=== PATIENT | male | born 1980 | race Hispanic/Latino ===

== ENCOUNTER 2022-02-07 15:52 | Emergency (ER) | payer SELFPAY ==
[2022-02-07] MEDS ORDERED: Adenocard IV 6 MG/2 ML IV ONE ×4 (16:49→17:17)
[2022-02-07] MEDS ORDERED: Sodium Chloride 0.9% 1000 ML 1,000 ML ONE ×2 (16:49→18:51)
--- NOTE | 2022-02-07 16:55 | ERPHSYRPT ---
- History of Present Illness Time Seen by Provider: 02/07/22 16:39 Source: patient, family Exam Limitations: language barrier Physician History: 41-year-old Bahamian-speaking male with questionable history of atrial fibrillation/flutter almost 17 years ago with some work-up done at [facility] was feeling fine until recently started to have again having palpitations with gen eralized weakness fatigue and tiredness, last for few hours today then improved but for the last couple of days he is having constant palpitations feeling fatigued tired. Gets worse with activity and mild improvement with resting. Dull aching discomfort in the chest with mild difficulty breathing on ambulation as well. No fever or chills reported. Does not use any drugs. Drink 2-3 times a week regularly. According to brother he is taking some medication but do not know the name. Timing/Duration: day(s) (2), constant, gradual onset, worse Severity: moderate Modifying Factors: Worsens With: movement Associated Symptoms: weakness Allergies/Adverse Reactions: No Known Drug Allergies Allergy (Verified 02/07/22 16:35) Home Medications: Unobtainable 02/07/22 [History] - Review of Systems Constitutional: Fatigue, Weakness Eyes: No Symptoms Ears, Nose, & Throat: No Symptoms Respiratory: Dyspnea, Dyspnea on Exertion (MORFIN) Cardiac: Palpitations Abdominal/Gastrointestinal: No Symptoms Genitourinary Symptoms: No Symptoms Musculoskeletal: No Symptoms Skin: No Symptoms Psychological: No Symptoms Endocrine: No Symptoms Hematologic/Lymphatic: No Symptoms Immunological/Allergic: No Symptoms - Nursing Vital Signs Nursing Vital Signs: Initial Vital Signs Temperature 98.1 F 02/07/22 16:39 Pulse Rate 121 H 02/07/22 16:39 Respiratory Rate 20 02/07/22 16:39 Blood Pressure 110/88 02/07/22 16:39 O2 Sat by Pulse Oximetry 98 02/07/22 16:39 Pain Scale Pain Intensity 0 - Physical Exam General Appearance: no apparent distress, alert Eye Exam: PERRL/EOMI Ears, Nose, Throat Exam: normal ENT inspection, pharynx normal Neck Exam: normal inspection, non-tender, supple, full range of motion Respiratory Exam: normal breath sounds, lungs clear Cardiovascular Exam: normal heart sounds, tachycardia Gastrointestinal/Abdomen Exam: soft, normal bowel sounds, No tenderness Back Exam: normal inspection, normal range of motion Extremity Exam: normal inspection, normal range of motion Neurologic Exam: alert, oriented x 3, cooperative Skin Exam: normal color SpO2 Interpretation: normal SpO2: 96 O2 Delivery: Room Air - Course Nursing assessment & vital signs reviewed: Yes EKG Interpreted by Me: RATE (159, atrial flutter), NORMAL AXIS, prolonged QT interval (Second EKG. Time 1711. Rate 67. Rhythm atrial flutter. Occasional PVC. Right axis deviation. Nonspecific T wave changes.), Non-specific ST Changes, Other Ordered Tests: Active Orders 24 hr Category Date Time Status Plant Equipment Engineer STAT Care 02/07/22 17:16 Completed EKG-ER Only STAT Care 02/07/22 17:16 Completed IV Insertion STAT Care 02/07/22 17:16 Completed Oxygen-ED Only Nasal Cannula 2 lpm Care 02/07/22 17:16 Completed CHEST 1 VIEW (PORTABLE) Stat Exams 02/07/22 17:16 Completed CBC W DIFF Stat Lab 02/07/22 17:20 Completed CMP Stat Lab 02/07/22 17:20 Completed MAG [MAGNESIUM] Stat Lab 02/07/22 17:34 Completed NT PRO BNP Stat Lab 02/07/22 17:20 Completed PROTIME WITH INR Stat Lab 02/07/22 17:31 Completed TROPONIN Q3H Lab 02/07/22 17:20 Completed TSH [TSH, 3RD Generation] Stat Lab 02/07/22 17:34 Completed Medication Summary Discontinued Medications Generic Name Dose Route Start Last Admin Trade Name Freq PRN Reason Stop Dose Admin Adenosine Confirm 02/07/22 16:49 Adenosine 6 Mg/2 Ml Vial Administered 02/07/22 16:50 Dose 6 mg IV .STK-MED ONE Adenosine Confirm 02/07/22 17:09 Adenosine 6 Mg/2 Ml Vial Administered 02/07/22 17:10 Dose 12 mg IV .STK-MED ONE Adenosine 6 mg 02/07/22 17:17 02/07/22 17:07 Adenosine 6 Mg/2 Ml Vial IV 02/07/22 17:18 6 mg STAT ONE Administration Adenosine 12 mg 02/07/22 17:17 02/07/22 17:11 Adenosine 6 Mg/2 Ml Vial IV 02/07/22 17:18 12 mg STAT ONE Administration Aspirin 324 mg 02/07/22 17:16 02/07/22 17:25 Aspirin 81 Mg Tab.Chew PO 02/07/22 17:17 324 mg STAT ONE Administration Aspirin Confirm 02/07/22 17:24 Aspirin 81 Mg Tab.Chew Administered 02/07/22 17:25 Dose 324 mg .ROUTE .STK-MED ONE Digoxin 0.5 mg 02/07/22 18:46 02/07/22 18:47 Digoxin 0.5 Mg/2 Ml Injection IV 02/07/22 18:47 0.5 mg STAT ONE Administration Digoxin Confirm 02/07/22 18:45 Digoxin 0.5 Mg/2 Ml Injection Administered 02/07/22 18:46 Dose 0.5 mg .ROUTE .STK-MED ONE Diltiazem HCl 10 mg 02/07/22 17:16 02/07/22 17:29 Diltiazem Hcl Iv 5 Mg/Ml Vial IV 02/07/22 17:17 10 mg STAT ONE Administration Diltiazem HCl Confirm 02/07/22 17:28 Diltiazem Hcl Iv 5 Mg/Ml Vial Administered 02/07/22 17:29 Dose 50 mg IV .STK-MED ONE Sodium Chloride Confirm 02/07/22 16:49 Sodium Chloride 0.9% 1000 Ml Administered 02/07/22 16:50 Dose 1,000 mls @ ud .ROUTE .STK-MED ONE Sodium Chloride 1,000 mls @ 999 mls/hr 02/07/22 17:16 02/07/22 18:36 Sodium Chloride 0.9% 1000 Ml IV 02/07/22 18:16 Infused .Q1H1M STA Infusion Diltiazem HCl 100 mls @ 5 mls/hr 02/07/22 17:16 02/07/22 18:28 Cardizem Drip 100 Mg/100 Ml D5w IV 03/09/22 17:15 10 mg/hr .Q20H PRN 10 mls/hr HEART RATE/ A-FIB Titration Protocol 5 MG/HR Sodium Chloride Confirm 02/07/22 18:51 Sodium Chloride 0.9% 1000 Ml Administered 02/07/22 18:52 Dose 1,000 mls @ ud .ROUTE .STK-MED ONE Sodium Chloride 1,000 mls @ 100 mls/hr 02/07/22 19:00 02/07/22 18:55 Sodium Chloride 0.9% 1000 Ml IV 03/09/22 18:59 100 mls/hr .Q10H JORGE Administration Diltiazem HCl Confirm 02/07/22 17:18 Cardizem Drip 100 Mg/100 Ml D5w Administered 02/07/22 17:19 Dose 100 mls @ ud IV .STK-MED ONE Lab/Rad Data: Laboratory Result Diagrams 02/07/22 17:20 02/07/22 17:20 Laboratory Results 02/07/22 02/07/22 02/07/22 Range/Units 17:34 17:34 17:31 WBC (4.0-10.5) x10^3/uL RBC (4.1-5.6) x10^6/uL Hgb (12.5-18.0) g/dL Hct (42-50) % MCV (78-100) fL MCH (26-32) pg MCHC (32-36) g/dL RDW (11.5-14.0) % Plt Count (150-450) x10^3/uL MPV (7.5-11.0) fL Gran % (36.0-66.0) % Immature Gran % (Auto) (0.00-0.4) % Nucleat RBC Rel Count (0.00-0.1) % Eos # (Auto) (0-0.5) x10^3/uL Immature Gran # (Auto) (0.00-0.03) x10^3u/L Absolute Lymphs (auto) (1.0-4.6) x10^3/uL Absolute Monos (auto) (0.0-1.3) x10^3/uL Absolute Nucleated RBC (0.00-0.01) x10^3u/L Lymphocytes % (24.0-44.0) % Monocytes % (0.0-12.0) % Eosinophils % (0.00-5.0) % Basophils % (0.0-0.4) % Absolute Granulocytes (1.4-6.9) x10^3/uL Basophils # (0-0.4) x10^3/uL PT 11.2 (9.4-12.5) SECONDS INR 1.06 (0.8-3.0) Sodium (137-145) mmol/L Potassium (3.5-5.1) mmol/L Chloride (98-107) mmol/L Carbon Dioxide (22-30) mmol/L Anion Gap (5-15) MEQ/L BUN (9-20) mg/dL Creatinine (0.66-1.25) mg/dL Estimated GFR ML/MIN Glucose (74-106) mg/dL Calcium (8.4-10.2) mg/dL Magnesium 2.1 (1.6-2.3) mg/dL Total Bilirubin (0.2-1.3) mg/dL AST (17-59) U/L ALT (0-50) U/L Alkaline Phosphatase (38-126) U/L Troponin I (0.000-0.034) ng/mL NT-Pro-B Natriuret Pep (0-450) pg/mL Serum Total Protein (6.3-8.2) g/dL Albumin (3.5-5.0) g/dL TSH 3rd Generation 1.470 (0.47-4.68) mIU/L 02/07/22 02/07/22 02/07/22 Range/Units 17:20 17:20 17:20 WBC 6.1 (4.0-10.5) x10^3/uL RBC 4.19 (4.1-5.6) x10^6/uL Hgb 12.4 L (12.5-18.0) g/dL Hct 38.6 L (42-50) % MCV 92.1 (78-100) fL MCH 29.6 (26-32) pg MCHC 32.1 (32-36) g/dL RDW 12.8 (11.5-14.0) % Plt Count 184 (150-450) x10^3/uL MPV 12.2 H (7.5-11.0) fL Gran % 60.9 (36.0-66.0) % Immature Gran % (Auto) 0.3 (0.00-0.4) % Nucleat RBC Rel Count 0.0 (0.00-0.1) % Eos # (Auto) 0.06 (0-0.5) x10^3/uL Immature Gran # (Auto) 0.02 (0.00-0.03) x10^3u/L Absolute Lymphs (auto) 1.41 (1.0-4.6) x10^3/uL Absolute Monos (auto) 0.89 (0.0-1.3) x10^3/uL Absolute Nucleated RBC 0.00 (0.00-0.01) x10^3u/L Lymphocytes % 23.0 L (24.0-44.0) % Monocytes % 14.5 H (0.0-12.0) % Eosinophils % 1.0 (0.00-5.0) % Basophils % 0.3 (0.0-0.4) % Absolute Granulocytes 3.74 (1.4-6.9) x10^3/uL Basophils # 0.02 (0-0.4) x10^3/uL PT (9.4-12.5) SECONDS INR (0.8-3.0) Sodium 138 (137-145) mmol/L Potassium 4.1 (3.5-5.1) mmol/L Chloride 104 (98-107) mmol/L Carbon Dioxide 25 (22-30) mmol/L Anion Gap 13.2 (5-15) MEQ/L BUN 11 (9-20) mg/dL Creatinine 0.83 (0.66-1.25) mg/dL Estimated GFR > 60.0 ML/MIN Glucose 102 (74-106) mg/dL Calcium 8.8 (8.4-10.2) mg/dL Magnesium (1.6-2.3) mg/dL Total Bilirubin 1.40 H (0.2-1.3) mg/dL AST 43 (17-59) U/L ALT 38 (0-50) U/L Alkaline Phosphatase 68 (38-126) U/L Troponin I 0.013 (0.000-0.034) ng/mL NT-Pro-B Natriuret Pep 2330 H (0-450) pg/mL Serum Total Protein 7.0 (6.3-8.2) g/dL Albumin 4.1 (3.5-5.0) g/dL TSH 3rd Generation (0.47-4.68) mIU/L - Progress Progress: unchanged Progress Note: 02/07/22 17:19 41-year-old is evaluated for palpitations. Patient seems to be in atrial flutter and given adenosine 6 which did not make any change in the heart rate followed by adenosine 12 with an underlying rhythm was atrial flutter for few seconds and went back into atrial flutter with RVR. Started on Cardizem and will get baseline work-up done and patient probably needs to be transferred facility with cardiology service. 02/07/22 18:51 Patient has negative initial troponin. BNP 2300s with right-sided congestion on chest x-ray without any infiltrative process. Discussed with Dr. Nelson, reviewed history, work-up. Patient heart rate is still in 150s despite being on Cardizem 10. Recommended push dose of dig 500 mcg which is given. Patient is excepted for transfer. Plan discussed with patient and family who understand and agree with it. 02/07/22 18:[address] Other (Dr. Nelson [facility]) Counseled pt/family regarding: lab results, diagnosis, need for follow-up, rad results - Departure Departure Disposition: Transfer Clinical Impression: Atrial flutter with rapid ventricular response Condition: Stable Critical Care Time: Yes Critical Care Time(excluding separately billable procedures): Critical 30-74 mins Referrals: Provider,Unknown [NON-STAFF PHY W/O PRIVILEGES] - Follow up/PCP as directed
[2022-02-07] MEDS ORDERED: Cardizem IV 50 MG/10 ML IV ONE ×2 (17:16→17:28)
[2022-02-07] MEDS ORDERED: BABY ASPIRIN 81 MG CHEW PO ONE (17:16)
[2022-02-07] MEDS ORDERED: CARDIZEM DRIP 100 MG/100 ML D5W 100 ML IV PRN (17:16)
[2022-02-07] MEDS ORDERED: Sodium Chloride 0.9% 1000 ML 1,000 ML IV STA (17:16)
[2022-02-07] MEDS ORDERED: CARDIZEM DRIP 100 MG/100 ML D5W 100 ML IV ONE (17:18)
[2022-02-07] MEDS ORDERED: BABY ASPIRIN 81 MG CHEW ONE (17:24)
[2022-02-07 17:33] LABS: Absolute Neutrophil Ct (ANC) 3.74 x10^3/uL (1.4-6.9); Basophil (Absolute #) 0.02 x10^3/uL (0-0.4); Eosinophil (Absolute #) 0.06 x10^3/uL (0-0.5); Hematocrit 38.6 % (42-50); Hemoglobin 12.4 g/dL (12.5-18.0); Lymphocyte (Absolute #) 1.41 x10^3/uL (1.0-4.6); Mean Cell Volume 92.1 fL (78-100); Mean Corpuscular Hemoglobin 29.6 pg (26-32); Mean Corpuscular Hgb Concent. 32.1 g/dL (32-36); Mean Platelet Volume 12.2 fL (7.5-11.0); Monocyte (Absolute #) 0.89 x10^3/uL (0.0-1.3); Monocytes % 14.5 % (0.0-12.0); Neutrophil % 60.9 % (36.0-66.0); Platelet Count 184 x10^3/uL (150-450); Red Blood Count 4.19 x10^6/uL (4.1-5.6); Red Cell Distribution Width 12.8 % (11.5-14.0); White Blood Count 6.1 x10^3/uL (4.0-10.5)
[2022-02-07 17:56] LABS: ALBUMIN 4.1 g/dL (3.5-5.0); ALKALINE PHOSPHATASE 68 U/L (38-126); ANION GAP 13.2 MEQ/L (5-15); BLOOD UREA NITROGEN 11 mg/dL (9-20); CHLORIDE 104 mmol/L (98-107); Calcium 8.8 mg/dL (8.4-10.2); Carbon Dioxide 25 mmol/L (22-30); Creatinine 1 0.83 mg/dL (0.66-1.25); EST GLOMERULAR FILTRATION RATE > 60.0 ML/MIN; Glucose 102 mg/dL (74-106); NT PRO BNP 2330 pg/mL (0-450); Potassium 4.1 mmol/L (3.5-5.1); SGOT/AST 43 U/L (17-59); SGPT/ALT 38 U/L (0-50); SODIUM 138 mmol/L (137-145)
[2022-02-07 18:23] VITALS: PULSE 157
[2022-02-07 18:23] LABS: INR 1.06 (0.8-3.0); PROTIME 11.2 SECONDS (9.4-12.5)
[2022-02-07 18:43] VITALS: BP 109/76
[2022-02-07] MEDS ORDERED: Lanoxin 0.5 MG/2 ML INJECTION ONE (18:45)
[2022-02-07] MEDS ORDERED: Lanoxin 0.5 MG/2 ML INJECTION IV ONE (18:46)
[2022-02-07 18:52] VITALS: O2SAT 96
[2022-02-07] MEDS ORDERED: Sodium Chloride 0.9% 1000 ML 1,000 ML IV SCH (19:00)
--- NOTE | 2022-02-07 19:04 | XRAY ---
Indication: General fatigue. Comparison: February 02, 2010. Portable apical lordotic chest remains hyperinflated and clear with again incidental tiny right base calcified granuloma. Heart not enlarged again with cardiac valve replacement surgery. Bony thorax intact. Impression: Continued nonacute hyperinflated chest with chronic features. Comment: Preliminary interpretation made by C. No critical discrepancy.
== END 2022-02-07 19:23 | disposition short-term general hospital (02) ==
LOC: ED 15:52
DX: I48.92 Unspecified atrial flutter (principal); R53.1 Weakness; R53.83 Other fatigue; R07.9 Chest pain, unspecified; R06.00 Dyspnea, unspecified
CPT/HCPCS: 36000; 36415; 71045; 80053; 83735; 83880; 84443; 84484; 85025; 85610; 93005; 93041; 96374; 96375; 99285; 99291; J0153; J1160; A9270-GY